=== PATIENT | male | born 1985 | race Caucasian/White ===

== ENCOUNTER 2018-07-28 16:45 | Inpatient (IN) | payer MEDICAID ==
[~2018-07-28] VITALS: Ht 182.9 cm; Wt 115.2 kg
--- NOTE | 2018-07-28 16:49 | NUR ---
PT BIBA ALS TO BED 5
--- NOTE | 2018-07-28 16:56 | NUR ---
TELEPSYCH CONSULT REQUEST SUBMITTED REQUESTED BY DR PADILLA
[2018-07-28 17:00] VITALS: BP 135/63
--- NOTE | 2018-07-28 17:00 | NUR ---
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 MINIMAL REDNESS NECK AREA.DENIES HX:, DENIES MEDS. DENIES PREVIOUS 5150 HOLD ALTHOUGH [facility] STATED HE HAS HISTORY. PATIENT DENIES SUICIDAL ACT. [facility] HAD 4 CANS BEER. PATIENT STATED HAD HISTORY OF RT. ARM ARTERY BYPASS . DENIES N/V/D; SKIN IS PINK/WARM/DRY; AAOX4. LUNGS CLEAR BL; HR EVEN AND REGULAR; PT DENIES ANY FEVER, CP, SOB, OR COUGH AT THIS TIME; PATIENT STATES PAIN OF 0/10 AT THIS TIME; VSS; PATIENT POSITIONED FOR COMFORT; HOB ELEVATED; BEDRAILS UP X2; BED DOWN. ER MD MADE AWARE OF PT STATUS.
[2018-07-28 17:45] LABS: BASOPHILS # (AUTO) 0.2 K/uL (0.00-0.22); EOSINOPHILS # (AUTO) 0.2 K/uL (0-0.4); EOSINOPHILS % (AUTO) 1.9 % (0.0-4.0); HEMATOCRIT 44.1 % (36-52); HEMOGLOBIN 14.6 g/dL (12.0-18.0); LYMPHOCYTES # (AUTO) 0.9 K/uL (2.0-11.5); LYMPHOCYTES % (AUTO) 10.1 % (20.5-51.1); MEAN CORPUSCULAR HEMOGLOBIN 28 pg (27-31); MEAN CORPUSCULAR HGB CONC 33 g/dL (33-37); MEAN CORPUSCULAR VOLUME 85.2 fL (80-94); MONOCYTES # (AUTO) 0.3 K/uL (0.8-1.0); MONOCYTES % (AUTO) 3.5 % (1.7-9.3); NEUTROPHILS # (AUTO) 7.4 K/uL (1.8-7.7); NEUTROPHILS % (AUTO) 82.5 % (42.2-75.2); PLATELET COUNT (AUTO) 276 K/uL (140-450); RED BLOOD CELL COUNT(AUTO) 5.18 MIL/uL (4.20-6.10); RED CELL DISTRIBUTION WIDTH 14.2 % (11.6-13.7); WHITE BLOOD COUNT (AUTO) 8.9 K/uL (4.8-10.8)
--- NOTE | 2018-07-28 17:46 | NUR ---
spoke to psychatrist regarding pt's situation. will talk to patient.
--- NOTE | 2018-07-28 17:50 | NUR ---
DR PIERRE CALLED IN AND STARTED TELEPSYCH CONSULT
[2018-07-28 17:51] LABS: APPEARANCE,URINE CLEAR (CLEAR); BILIRUBIN,URINE NEGATIVE (NEGATIVE); BLOOD, URINE NEGATIVE (NEGATIVE); COLOR,URINE YELLOW (YELLOW); LEUKOCYTE ESTERASE ,URINE NEGATIVE (NEGATIVE); NITRITE, URINE NEGATIVE (NEGATIVE); UGLUCOSE NEGATIVE (NEGATIVE)
[2018-07-28 18:02] LABS: BARBITURATE, URINE NEG. ng/ml (NEG <=200); BENZODIAZEPINE, URINE NEG. ng/mL (NEG <=200); CANNABINOID, URINE POS. ng/mL (NEG <=50); COCAINE, URINE NEG. ng/mL (NEG <=300); OPIATE, URINE NEG. ng/mL (NEG <=2000); PHENCYCLIDINE SCREEN,URINE NEG. ng/mL (NEG <=25)
[2018-07-28 18:05] LABS: ACETAMINOPHEN < 0.5 ug/ml (10-30); SALICYLATE < 2.8 mg/dL (2.8-20.0)
--- NOTE | 2018-07-28 18:17 | NUR ---
received phone call from dr. yusuf psychatrist, per dr. yusuf, keep [phone] and send this pt to psychatric facility. notified ER .
--- NOTE | 2018-07-28 18:45 | NUR ---
PT'S GIRLFRIEND PRESENTED TO BEDSIDE. PT'S GIRL FRIEND STATED SHE DID NOT SEND A PICTURE TEXT TO OFFICER. AND CHARGE NURSE AWARE. PER DR. PADILLA, THE CURRENT SITUATION IS OUT OF OUR CONTROL.
--- NOTE | 2018-07-28 18:50 | NUR ---
PT STATED HE DID PLAN TO HURT HIMSELF OR OTHER PEOPLE. HE JUST HAD A BAD DAY TODAY AND HE WANTS TO GO HOME.
--- NOTE | 2018-07-28 19:05 | NUR ---
REPORT GIVEN TO PM SHIFT NURSE. PT'S GIRLFRIEND AT BEDSIDE.
--- NOTE | 2018-07-28 19:05 | NUR ---
RECIEVED REPORT FROM DAY SHIFT RN
--- NOTE | 2018-07-28 19:06 | NUR ---
BILAT SOFT HAND RESTRAINTS REMOVED. PT AAOX4. VSS, PT STABLE. AT BEDSIDE. DINNER AT BEDSIDE. SITTER EMT [place] AT BEDSIDE
--- NOTE | 2018-07-28 19:23 | NUR ---
PT REFUSED VITAL SIGNS
--- NOTE | 2018-07-28 21:42 | NUR ---
Patient appears to be resting in bed. Vital Signs within normal limits. Respirations even and unlabored.
--- NOTE | 2018-07-28 22:07 | NUR ---
Patient appears to be resting in bed. Vital Signs within normal limits. Respirations even and unlabored.
--- NOTE | 2018-07-28 22:11 | NUR ---
S/W SHARMILA TO FOLLOW UP;SHARMILA CALLED THE FOLLOWING FACILITIES: - [facility] S/W FARHAT NO BEDS - [facility] S/W HEALTH COACH RAUL NO BEDS - [facility] S/W TIMMY NO BEDS - [facility] NO ANSWER - [facility] S/W [facility] NO BEDS - [facility];S/W LO, MIGHT HAVE A BED PACKET FAXED ABOUT AN HOUR AGO, WAITING TO HEAR BACK AFTER CHART REVIEW
--- NOTE | 2018-07-28 23:32 | NUR ---
PT RESTING WITH BLANKETS COVERINF FACE. NO SIGNS OF DISTRESS AT THIS TIME.
--- NOTE | 2018-07-28 23:47 | NUR ---
S/W SHARMILA TO FOLLOW UP; SHARMILA STS "I ASKED JACKLYN PERDUE TO CALL [facility] ER IF BED IS OPEN." I CALLED JACKLYN PERDUE SPOKE TO LANA. SHE STS " SHE WILL CALL ME BACK WITH BED STATUS."
--- NOTE | 2018-07-29 | NUR ---
Patient appears to be resting in bed. Vital Signs within normal limits. Respirations even and unlabored.
[2018-07-29] MEDS ORDERED: ONDANSETRON 4 MG/2 ML VIAL IM/IVP PRN (01:20)
[2018-07-29] MEDS ORDERED: LORazepam 2 MG/ML VIAL IM/IVP PRN (01:20)
[2018-07-29] MEDS ORDERED: DOCUSATE SODIUM 100 MG GELCAP PO PRN (01:20)
[2018-07-29] MEDS ORDERED: ACETAMINOPHEN 325 MG TAB PO PRN (01:20)
[2018-07-29] MEDS ORDERED: NACL 0.9% 1,000 ML IV SCH (01:20)
--- NOTE | 2018-07-29 01:35 | NUR ---
Patient will be admitted to care of [facility]. Admited to [facility] VIA WHEELCHAIR WITH VSS. Belongings list completed. Report to ESMER.
--- NOTE | 2018-07-29 01:37 | NUR ---
RECEIVED PT. FROM ER PER DEB AWAKE AND ALERT. NO SOB. DENIES PAIN AT THIS TIME. CARE PLANS FOR THE NIGHT DISCUSSED WITH HIM AND PT. ON 8130 WATCH. IVF SITE TO LAC #20. HEP LOCKED. VERBALIZES SIMPLE NEEDS WELL IN [place]. SKIN INTACT.
[2018-07-29 02:14] VITALS: BP 120/80
[2018-07-29] MEDS ORDERED: INFLUENZA VIRUS VACCINE QUAD 0.5 ML SYR IMVAC PRN (02:30)
[2018-07-29 02:31] LABS: PROTHROMBIN TIME 9.9 secs (10.8-13.4)
[2018-07-29 02:34] LABS: ALBUMIN 4.2 g/dL (3.4-5.0); ANION GAP 16.6 (8-16); CARBON DIOXIDE 24.3 mmol/L (21-32); CREATININE 1.2 mg/dL (0.7-1.3); POTASSIUM 3.9 mmol/L (3.5-5.1); TOTAL BILIRUBIN 0.3 mg/dL (0.0-1.0)
[2018-07-29 02:43] LABS: MAGNESIUM 2.1 mg/dL (1.8-2.4); PHOSPHORUS 3.1 mg/dL (2.5-4.9); THYROID STIMULATING HORMONE 2.35 uIU/mL (0.34-3.74)
--- NOTE | 2018-07-29 02:52 | NUR ---
PT. SLEEPING NOW. PROVIDED WITH WATER TO DRINK REQUESTED AND NOTED PT. WAS STILL IN CRYING MOOD WHEN I WAS TALKING TO HIM. ENCOURAGED TO ASK FOR HELP AND TO VERBALIZE WHAT HE IS THINKING OF LIKE IF HE STILL FEELS LIKE KILLING HIMSELF. PT. WITH LINDSAYTER 1:1 .
--- NOTE | 2018-07-29 04:16 | NUR ---
IVF DISCONTINUED BY RESIDENT .
--- NOTE | 2018-07-29 06:43 | NUR ---
SLEEPING. 1:[address]
--- NOTE | 2018-07-29 06:47 | NUR ---
PATIENT HAS BEEN SCREENED AND CATEGORIZED LOW NUTRITION RISK. PATIENT WILL BE SEEN WITHIN 7 DAYS OF ADMISSION. 08/04/18 KIM PABON MS, RDN
--- NOTE | 2018-07-29 07:23 | NUR ---
RECEIVED REPORT FROM DRIVER RECRUITER. PT ON 5150 WATCH. IVF SITE TO THE LEFT AC #20, HEP LOCKED. AAOX4. SKIN IS INTACT. PT VERBALIZES NEEDS WELL. ACTING COOPERATIVE AT THIS TIME. WILL ROUND FREQUENTLY ON PT. BED IN LOW POSITION, CALL LIGHT WITHIN REACH.
--- NOTE | 2018-07-29 07:27 | NUR ---
ENDORSED TO THE NEXT RN FOR CONTINUITY OF CARE.
[2018-07-29 08:00] VITALS: BP 146/94
--- NOTE | 2018-07-29 08:26 | NUR ---
PT COMPLAINING OF A HEADACHE PAIN 08/05. GAVE TYLENOL. WILL REASSESS FOR MED EFFECTIVENESS. PT IN GOOD CONDITION, NO SOB NOTED. BED IN LOW POSITION, CALL LIGHT WITHIN REACH.
[2018-07-29] MEDS ORDERED: IBUPROFEN 600 MG TAB PO PRN (08:45)
--- NOTE | 2018-07-29 11:06 | NUR ---
PT. SLEEPING NOW. NO SIGNS OF PAIN OR DISTRESS AT THIS TIME. PT WITH SITTER 1:1. WILL CONTINUE TO ROUND FREQUENTLY.
[2018-07-29 16:00] VITALS: BP 128/90
--- NOTE | 2018-07-29 19:38 | NUR ---
PT DISCHARGED HOME FOR SELF CARE. PT DISCHARGE PAPERWORK AND INSTRUCTIONS GIVEN. PT TOLD TO FOLLOW UP WITH PCP WITHIN 3-5 DAYS OF DC. PT VERBALIZED UNDERSTANDING OF TEACHING. PT IV REMOVED WITH TIP INTACT. WRIST BAND REMOVED AND PLACED IN SHRED BIN. ALL PERSONAL BELONGINGS TAKEN HOME WITH PT. FLU SHOT GIVEN, PT TOLERATED WELL. NO PAIN OR DISTRESS NOTED. PT LEFT IN STABLE CONDITION WITH .
== END 2018-07-29 19:31 | disposition home or self-care (01) | DRG 775 ==
LOC: MED 16:45 → MTU 07-29 01:20
PROVIDERS: ADMIT General Practice; ATTEND General Practice
DX: F10.129 Alcohol abuse with intoxication, unspecified (principal); G92 Toxic encephalopathy; R45.851 Suicidal ideations; R65.10 Systemic inflammatory response syndrome (SIRS) of non-infectious origin without acute organ dysfunction; F12.90 Cannabis use, unspecified, uncomplicated; F43.9 Reaction to severe stress, unspecified; E66.9 Obesity, unspecified; Z68.34 Body mass index [BMI] 34.0-34.9, adult; Z88.2 Allergy status to sulfonamides; Y92.89 Other specified places as the place of occurrence of the external cause; Y90.6 Blood alcohol level of 120-199 mg/100 ml; Z23 Encounter for immunization
CPT/HCPCS: 36415; 71045; 80053; 80305; 81003; 83036; 83690; 83735; 83880; 84100; 84443; 85025; 85610; 85730; 87081; 99285; G0480; G0482; J7030; Q0092

== ENCOUNTER 2018-09-11 11:09 | Emergency (ER) | payer MEDICAID ==
[~2018-09-11] VITALS: Ht 182.9 cm; Wt 117.9 kg
[2018-09-11 11:14] VITALS: BP 120/77
--- NOTE | 2018-09-11 11:17 | NUR ---
PATIENT AMBULATED TO BED 4.
--- NOTE | 2018-09-11 11:45 | NUR ---
c/o yellowish discharge, burning pain 8/10 oral eyes x 3 days. denies injury or visual changes. PATIENT POSITIONED FOR COMFORT; HOB ELEVATED; BEDRAILS UP X2; BED DOWN. ER MD MADE AWARE OF PT STATUS.
[2018-09-11 12:41] VITALS: BP 118/72
--- NOTE | 2018-09-11 12:41 | NUR ---
Patient discharged with v/s stable. Written and verbal after care instructions given and explained. Patient alert, oriented and verbalized understanding of instructions. Ambulatory with steady gait. All questions addressed prior to discharge. ID band removed. Patient advised to follow up with PMD. Rx of ERYTHROMYCIN OINTMENT, MERE& AZITHROMYCIN given. Patient educated on indication of medication including possible reaction and side effects. Opportunity to ask questions provided and answered.
== END 2018-09-11 12:41 | disposition home or self-care (01) ==
LOC: MED 11:09
DX: H10.9 Unspecified conjunctivitis (principal); B96.89 Other specified bacterial agents as the cause of diseases classified elsewhere; Z88.2 Allergy status to sulfonamides
CPT/HCPCS: 99283

== ENCOUNTER 2020-06-02 12:14 | Emergency (ER) | payer MEDICAID, SELFPAY ==
[~2020-06-02] VITALS: Ht 182.9 cm; Wt 88.9 kg
[2020-06-02 12:42] VITALS: BP 163/106
--- NOTE | 2020-06-02 16:30 | NUR ---
[facility] NOVEL PCR SWAB DONE AND SENT TO LAB
--- NOTE | 2020-06-02 16:45 | NUR ---
Patient discharged with v/s stable by Trent RN. Written and verbal after care instructions about covid 19 given and explained. Patient alert, oriented and verbalized understanding of instructions. Ambulatory with steady gait. All questions addressed prior to discharge. ID band removed. Patient advised to follow up with PMD. Rx of ibuprofen, promethazine given. Patient educated on indication of medication including possible reaction and side effects. Opportunity to ask questions provided and answered.
[2020-06-02 17:03] VITALS: BP 163/106
--- NOTE | 2020-06-05 13:15 | NUR ---
+ covid result received from lab. Copy given to infection control
== END 2020-06-02 16:45 | disposition home or self-care (01) ==
LOC: MED 12:14
DX: R50.9 Fever, unspecified (principal); Z20.828 Contact with and (suspected) exposure to other viral communicable diseases; Z88.2 Allergy status to sulfonamides
CPT/HCPCS: 99283; U0003

== ENCOUNTER 2023-03-11 03:03 | Emergency (ER) | payer MEDICAID, OTHER ==
[~2023-03-11] VITALS: Ht 182.9 cm; Wt 129.3 kg
[2023-03-11 03:12] VITALS: BP 141/51; PULSE 98; RESP 16; TEMP 97.7; O2SAT 98
[2023-03-11] MEDS ORDERED: MELA10CA PO (03:52)
== END 2023-03-11 03:56 | disposition left against medical advice (07) ==
LOC: MED 03:03
DX: G47.00 Insomnia, unspecified (principal); Z88.2 Allergy status to sulfonamides; Z79.899 Other long term (current) drug therapy
CPT/HCPCS: 99282

== ENCOUNTER 2023-03-11 20:08 | Emergency (ER) | payer OTHER ==
[~2023-03-11] VITALS: Ht 182.9 cm; Wt 127.0 kg
[~2023-03-11 20:08] MED LIST: MELA10CA PO
[2023-03-11 20:17] VITALS: BP 149/105; PULSE 118; RESP 16; TEMP 97.9; O2SAT 95
== END 2023-03-11 22:00 | disposition left against medical advice (07) ==
LOC: MED 20:08
DX: G47.00 Insomnia, unspecified (principal); Z53.21 Procedure and treatment not carried out due to patient leaving prior to being seen by health care provider
CPT/HCPCS: 99281

== ENCOUNTER 2023-07-29 06:08 | Emergency (ER) | payer OTHER ==
[~2023-07-29] VITALS: Ht 182.9 cm; Wt 127.0 kg
[2023-07-29 06:13] VITALS: BP 130/92; PULSE 92; RESP 17; TEMP 97.8; O2SAT 97
[2023-07-29 06:43] VITALS: BP 130/92; PULSE 92; RESP 17; TEMP 97.8; O2SAT 97
[2023-07-29] MEDS ORDERED: CARB15DR61 OT (06:57)
== END 2023-07-29 07:16 | disposition home or self-care (01) ==
LOC: MED 06:08
DX: H61.21 Impacted cerumen, right ear (principal); Z88.2 Allergy status to sulfonamides; Z79.899 Other long term (current) drug therapy
CPT/HCPCS: 99282